=== PATIENT | male | born 1980 | race Caucasian/White ===

== ENCOUNTER 2020-04-06 16:58 | Emergency (ER) | payer OTHER, SELFPAY ==
[2020-04-06 16:59] VITALS: BP 129/89; PULSE 68; RESP 16; TEMP 37.3; O2SAT 98; BMI 25.4
--- NOTE | 2020-04-06 17:12 | [facility].EDGENADL ---
ED Disposition Clinical Impression: Diverticular hemorrhage, Lower gastrointestinal hemorrhage Disposition: Home, Self-Care Condition on Discharge: Fair Instructions: DI for Gastrointestinal Bleeding, DI for Diverticulosis Additional Instructions: Follow-up with Dr. Robles, surgeon, call for appointment. Return to the emergency department if worsening bleeding or pain, vomiting, fever, vomiting of blood. Tramadol as needed for pain. Avoid alcohol, aspirin, ibuprofen, Aleve, or any blood thinners. Additional instructions for CONTROLLED SUBSTANCES: You have been prescribed a medication that is a controlled substance. Controlled substances include pain medications known as opiates and sedative nerve medications known as benzodiazepines. Tramadol, fioricet, and gabapentin are also controlled substances. Some common opiates include: Codeine (such as Tylenol #3) Hydrocodone (Vicodin, Lortab, Lorcet, [place]) Oxycodone (Percocet, Percodan, Oxycodone, Oxy IR) Some common benzodiazepines include: Diazepam (Valium) Lorazepam (Ativan) Alprazolam (Xanax) Clonazepam (Klonopin) Oxazepam (Serax) All of these controlled substances are highly addictive and frequently abused. Misuse can and frequently does lead to addiction as well as overdose and . Medication should be stored in a locked cabinet or other secure storage unit. Do not store the medication in a motor vehicle. Short term supplies, 3 days or less, are prescribed because of the highly addictive nature of the medication. Any of the controlled substance medication NOT taken should be disposed of properly and NOT SAVED. The recommended method of disposing of unused medications is: Place the medicines in a sealable plastic bag. If the medicine is a solid, crush it or add water to dissolve it. Add something undesirable (cat litter, coffee grounds, etc.) Dispose of sealed bag in household trash Do not flush or pour unused medicines down a sink or drain. Controlled substances should not be shared, given away or sold. Because of the addictive nature and frequent abuse, these medications are sometimes stolen. These medications should be kept in a safe place where they cannot be stolen. Do not keep them in your car or purse. Lost or stolen prescriptions for controlled substances WILL NOT BE REFILLED in this emergency department, regardless of whether a police report was filed. Prescriptions: Tramadol HCl [Tramadol 50mg Tab] 50 mg PO Q6HP PRN #12 tab PRN Reason: Moderate Pain Transmission Status: [id number] Referrals: Onur Darling [Primary Care Provider] - Per Robles MD [Staff Physician] - - Critical Care Critical Care Time: No Attestation: On 04/06/20, the high probability of a clinically significant, sudden or life threatening deterioration of the following system(s) required my full and direct attention, intervention and personal management. The time I documented below is in addition to time spent performing reported procedures but includes the following listed in this critical care notation. Medical Decision Making - Medical Records Medical records reviewed: Yes: I reviewed the patient's medical records. - Facundo Inquiry Pt receiving controlled substance: Yes Facundo was queried for this patient: Yes Reference #:: [id number] Risks and benefits of using a controlled substance: were discussed with pt by me Comment: 19 rxs for suboxone, last was in January 30 day rx. Vital Signs: 04/06/20 16:59 04/06/20 19:02 Temperature 99.2 F 98.0 F Temperature Source Oral Oral Pulse Rate 56 L Pulse Rate [Radial] 68 Respiratory Rate 16 16 Blood Pressure 137/84 Blood Pressure [Right Arm] 129/89 Blood Pressure Mean [Right Arm] 102 Blood Pressure Source Automatic Cuff Blood Pressure Position Sitting Blood Pressure Position [Right Arm] Sitting 02 Sat by Pulse Oximetry 98 Oxygen Delivery Method Room Air Room Air
[2020-04-06 17:25] LABS: Basophils # 0.1 K/mm3 (0-0.2); Basophils % 0.9 % (0.1-2.0); Eosinophils # 0.3 K/mm3 (0.0-0.4); Eosinophils % 3.5 % (0.1-12.0); Hematocrit 44.6 % (42.0-52.0); Hemoglobin 14.6 g/dL (14.1-18.0); Lymphocytes # 3.7 K/mm3 (0.7-4.5); Lymphocytes % 41.7 % (10-50); Mean Corpuscular HGB Conc 32.8 g/dL (31.8-35.4); Mean Corpuscular Hemoglobin 31.8 pg (27.0-31.2); Mean Platelet Volume 7.8 fl (7.4-10.4); Monocytes # 0.5 K/mm3 (0.1-1.0); Monocytes % 5.4 % (1.7-9.3); Neutrophils # 4.4 K/mm3 (1.8-7.8); Neutrophils % 48.5 % (37.0-80.0); Platelet Count 321 K/mm3 (142-424); Red Cell Distribution Width 12.5 % (11.5-17.5)
--- NOTE | 2020-04-06 17:29 | CT_ITS ---
Procedure: CT ABDOMEN PELVIS W CON Referring Doctor: Da Ruiz Patient Age:39Y CLINICAL INDICATION: abdo pain, rectal bleeding four days COMPARISON: CT ABDPELW/O CT ABD PELVIS W/O CONTRAST from 09/28/2012 CT ABDPELW/O CT ABD PELVIS W/O CONTRAST from 12/26/2012 TECHNIQUE: Nor oral contrast. 75 cc Optiray 350 IV contrast utilized Helical 1111axial images obtained with sagittal and coronal reformats. All CT scans at the facility use one or more dose reduction, viz: automated exposure control, ma/kV adjustment per patient size (including targeted exams where dose is matched to indication, i.e. head), or iterative reconstruction technique. FINDINGS: Lower thorax: No acute finding lung bases clear and heart normal size ABDOMEN: Liver: Unremarkable no masses or biliary dilatation. Small contracted gallbladder upper normal wall thickness most likely reflects its contracted state. No stones evident. Common duct normal diameter. . Pancreas: Unremarkable. No masses nor inflammatory changes evident. Spleen:. Granulomatous calcifications. Normal size Adrenals: unremarkable tract ---- Kidneys/ureters: Unremarkable. No free fluid pelvis The urinary bladder unremarkable. Moderate to slightly enlarged prostate 5.4 cm diameter. . GI tract------ Stomach: Moderate food and fluid slightly distended stomach. Upper normal wall thickness proximal stomach. Small bowel. Upper normal caliber proximal small bowel left quadrant. Borderline wall thickening here and duodenal loop. Distal small bowel unremarkable No evidence of appendicitis. Minimal radiopaque contrast throughout appendix Large bowel. Moderate stool most evident at right colon. Generous gas transverse colon. . Developing diverticuli throughout the sigmoid colon no diverticulitis evident upper normal wall thickness at the descending colon and sigmoid colon most likely reflecting lack of distension . Peritoneum: No abnormal fluid collections. No obvious inflammatory changes. No free air. Lymph nodes: No significant enlarged lymph nodes I would note some stable scattered small to moderate nodes again seen left periaortic and retroperitoneal region. This includes some scattered small nodes posterior to the IVC at the level of the right renal vein.-however prior studies shows similar appearance dates back to 2012 CT with no progression or significant change in this, supporting indolent, stable feature 1 of the larger nodes at the left periaortic region measures 8 x 12 mm x 16 mm length of but has been present since 2012. Slight hazy appearance in some of the retroperitoneal fat is been seen before as well. T. Vasculature: Unremarkable. Bones: No acute fracture degenerative changes spine with disc space narrowing most evident at L5/S1 again observed IMPRESSION: No discrete or prominent acute findings abdomen or pelvis . The diverticulosis sigmoid colon with no diverticulitis evident . Slight increased fluid within upper normal caliber proximal small bowel loops noted. Nonspecific doubt of significance but could reflect localized ileus or early enteritis Stable scattered moderate retroperitoneal nodes-no significant change since since 2012 Dictated by: Houston Oh MD 04/07/2020 08:32 Houston Oh MD in OV 04/07/2020 08:32
[2020-04-06 17:31] LABS: Alanine Aminotransferase 41 U/L (12-78); Albumin Level 4.6 g/dl (3.5-5.0); Albumin/Globulin Ratio 1.4 (1.1-1.8); Alkaline Phosphatase 98 U/L (38-126); Anion Gap 12.9 mEq/L (5-15); Aspartate Amino Transferase 51 U/L (17-59); Bilirubin,Total 0.4 mg/dl (0.2-1.3); Blood Urea Nitrogen 12 mg/dl (9-20); Calcium 10.1 mg/dl (8.4-10.2); Carbon Dioxide 27 mmol/L (22.0-30.0); Chloride 104 mmol/L (98-107); Creatinine Clearance Estimated 193 mL/min (50-200); Estimated Glomerular Filt Rate 125 ml/min (>60); GFR (African American) 151 ML/MIN (>60); Globulin 3.3 g/dL (1.3-3.2); Glucose 95 mg/dl (74-100); Lipase 49 U/L (23-300); Potassium 3.9 mmoL/L (3.5-5.1); Sodium 140 mmol/L (136-145); Total Protein,Serum 7.9 g/dl (6.3-8.2)
[2020-04-06 17:35] LABS: Occult Blood,Stool Positive (Negative)
[2020-04-06 19:02] VITALS: BP 137/84; PULSE 56; RESP 16; TEMP 36.7; O2SAT 98
== END 2020-04-06 19:00 | disposition home or self-care (01) ==
PROVIDERS: Emergency Provider Emergency Medicine; PCP Family Medicine
DX: K92.2 Gastrointestinal hemorrhage, unspecified (principal); K57.31 Diverticulosis of large intestine without perforation or abscess with bleeding; F17.210 Nicotine dependence, cigarettes, uncomplicated
CPT/HCPCS: 74177; 80053; 82272; 83690; 85025; 96365; 96375; 99283; G0328; J2405; Q9967